=== PATIENT | male | born 2000 | race Two or more races ===

== ENCOUNTER 2020-12-12 16:22 | Emergency (ER) | payer BC ==
[~2020-12-12] VITALS: Ht 170.2 cm; Wt 61.7 kg
--- NOTE | 2020-12-12 16:45 | NUR ---
Dr Brandon at the bedside for MSE.
[2020-12-12] MEDS ORDERED: KETOROLAC TROMETHAMINE 30 MG INJ ONE (16:59)
[2020-12-12] MEDS ORDERED: HYDROMORPHONE 2 MG/1 ML DISP.SYRIN ONE (17:00)
[2020-12-12] MEDS ORDERED: ONDANSETRON 4 MG/2 ML VIAL ONE (17:00)
[2020-12-12] MEDS ORDERED: ONDANSETRON 4 MG/2 ML VIAL IV ONE (17:00)
[2020-12-12] MEDS ORDERED: HYDROMORPHONE 1 MG/1 ML DISP.SYRIN IV ONE (17:00)
[2020-12-12] MEDS ORDERED: KETOROLAC TROMETHAMINE 30 MG INJ IVP ONE (17:00)
[2020-12-12] MEDS ORDERED: IV NORMAL SALINE 1000 ML BAG IV ONE (17:00)
--- NOTE | 2020-12-12 17:34 | NUR ---
PT out of ER for CT.
--- NOTE | 2020-12-12 17:42 | NUR ---
Pt back from Ct, denies pain and discomfort.
[2020-12-12 18:33] VITALS: BP 112/68
--- NOTE | 2020-12-12 18:33 | NUR ---
IV removed. Catheter intact and site benign. Pressure and 4x4 gauze applied to site. No bleeding noted.
--- NOTE | 2020-12-12 18:34 | NUR ---
Patient discharged to home in stable condition. Written and verbal after care instructions given. Patient verbalizes understanding of instructions. Stressed follow up or return to ER for worsening s/s.
== END 2020-12-12 18:34 | disposition home or self-care (01) ==
LOC: ER 16:26
DX: N20.2 Calculus of kidney with calculus of ureter (principal); Z87.442 Personal history of urinary calculi; Z88.6 Allergy status to analgesic agent
CPT/HCPCS: 74176; 96361; 96374; 96375 ×2; 99284; J1170; J1885; J2405; A4663; J7030